=== PATIENT | female | born 1935 | race Caucasian/White ===

== ENCOUNTER 2016-10-24 10:09 | Outpatient (CLI) | payer MEDICARE, OTHER ==
[2016-10-24 11:54] LABS: #Basophils 0.1 thou/uL (0.0-0.2); #Eosinphils 0.1 thou/uL (0.0-0.7); #Lymphocytes 1.3 thou/uL (1.20-3.40); #Monocytes 0.5 thou/uL (0.11-0.59); #Neutrophils 3.6 thou/uL (1.40-6.50); %Basophils 1.1 % (0.0-1.0); %Eosinophils 2.4 % (0.0-10.0); %Monocytes 8.2 % (0.0-10.0); Hematocrit 45.5 % (36.0-47.0); Mean Platelet Volume 5.9 fL (7.4-10.4); Red Blood Cell (RBC) Count 5.01 mill/uL (4.20-5.40); White Blood Cell (WBC) Count 5.5 thou/uL (4.8-10.8)
[2016-10-24 12:04] LABS: ALT (SGPT) 23 U/L (0-55); AST (SGOT) 21 U/L (5-34); Alkaline Phosphatase 50 U/L (40-150); Anion Gap 13 mmol/L (10-20); BUN (Urea Nitrogen) 18 mg/dL (9.8-20.1); Bilirubin, Total 0.6 mg/dL (0.2-1.2); Calc. Creatinine Clearance 0 mL/min (70-130); Calcium 9.2 mg/dL (7.8-10.44); Carbon Dioxide 26 mmol/L (23-31); Chloride 108 mmol/L (98-107); Estimated GFR-MDRD 64; Globulin 2.1 g/dL (2.4-3.5); LDL Cholesterol, Calculated 91 mg/dL; Protein, Total 6.2 g/dL (5.8-8.1)
== END 2016-10-24 10:10 | disposition home or self-care (01) ==
LOC: HPCALD 10:09
PROVIDERS: ATTEND Family Medicine
DX: E78.5 Hyperlipidemia, unspecified (principal); I10 Essential (primary) hypertension
CPT/HCPCS: 36415; 80053; 80061; 85025

== ENCOUNTER 2016-12-26 12:48 | Outpatient (CLI) | payer MEDICARE, OTHER ==
--- NOTE | 2016-12-26 18:28 | ULT ---
BILATERAL RENAL ULTRASOUND 12/26/16 Ultrasonography of the urinary tract was performed. The right kidney measures 9.9 x 5.1 x 4.2 cm. Th e left kidney measures 10.7 x 5.4 x 4.4 cm. No mass or hydronephrosis was seen in either kidney. The cortex seems ample in thickness and is normal in echogenicity bilaterally. There were no unequivoca l bright echoes in either kidney to confidently diagnose renal calculi. There were a few questionabl e areas on the left. The urinary bladder showed no internal defects. The wall was marginally thick a t 4 to 5 mm, but it was not completely distended. IMPRESSION: No definite acute findings. See comments above. POS: HOME
== END 2016-12-26 12:49 | disposition home or self-care (01) ==
LOC: BURULT 12:48
PROVIDERS: ATTEND Urology
DX: N20.0 Calculus of kidney (principal)
CPT/HCPCS: 76770

== ENCOUNTER 2017-04-19 12:01 | Outpatient (CLI) | payer MEDICARE, OTHER ==
[2017-04-19 12:09] LABS: #Basophils 0.1 thou/uL (0.0-0.2); #Eosinphils 0.3 thou/uL (0.0-0.7); #Lymphocytes 1.4 thou/uL (1.20-3.40); #Neutrophils 7.5 thou/uL (1.40-6.50); %Eosinophils 2.5 % (0.0-10.0); %Lymphocytes 14.1 % (21.0-51.0); %Monocytes 9.3 % (0.0-10.0); %Neutrophils 73.1 % (42.0-75.0); Hemoglobin 14.5 g/dL (12.0-16.0); Mean Corpuscular HGB CONC 34.2 g/dL (32.0-36.0); Mean Corpuscular Hemoglobin 30.1 pg (27.0-31.0); Mean Corpuscular Volume 88.1 fl (81.0-99.0); Mean Platelet Volume 6.2 fL (7.4-10.4); Platelet Count 323 thou/uL (130-400); Red Blood Cell (RBC) Count 4.82 mill/uL (4.20-5.40); White Blood Cell (WBC) Count 10.2 thou/uL (4.8-10.8)
[2017-04-19 12:51] LABS: ALT (SGPT) 22 U/L (8-55); AST (SGOT) 17 U/L (5-34); Albumin 3.9 g/dL (3.4-4.8); Alkaline Phosphatase 100 U/L (40-150); Anion Gap 19 mmol/L (10-20); BUN (Urea Nitrogen) 21 mg/dL (9.8-20.1); Bilirubin, Total 0.7 mg/dL (0.2-1.2); Calc. Creatinine Clearance 0 mL/min (70-130); Calcium 9.3 mg/dL (7.8-10.44); Carbon Dioxide 20 mmol/L (23-31); Chloride 105 mmol/L (98-107); Estimated GFR-MDRD 51; Globulin 2.5 g/dL (2.4-3.5); Glucose 93 mg/dL (83-110); Protein, Total 6.4 g/dL (6.0-8.3); Sodium 140 mmol/L (136-145)
== END 2017-04-19 12:02 | disposition home or self-care (01) ==
LOC: HPCALD 12:01
PROVIDERS: ATTEND Family Medicine
DX: R63.4 Abnormal weight loss (principal)
CPT/HCPCS: 36415; 80053; 84443; 85025

== ENCOUNTER 2017-04-22 07:59 | Outpatient (CLI) | payer MEDICARE, OTHER ==
[2017-04-22] MEDS ORDERED: Iopamidol 370 76% 100 ML VIAL ONE (09:00)
--- NOTE | 2017-04-22 21:55 | CT ---
CT OF THE ABDOMEN AND PELVIS WITH CONTRAST: DATE: 04/22/17. FINDINGS: Spiral CT of the abdomen and pelvis was performed for evaluation of weight loss and some left lower quadrant pain. Axial slices were acquired, then coronal reconstructions were done. Review was made of a prior CT dated 08/10/16. The lung bases are clear. The liver, spleen, pancreas, gallbladder, adrenal glands, and abdominal a fernandez appear normal. No space-occupying disease was seen in any organ and the aorta is normal in rachael iber. Bilateral renal calculi are present, but there is no evidence of urinary tract obstruction. The 201 6 study showed far more calculi in the upper pole of the left kidney than is seen today. I do not k now if there have been any procedures in the interim. Nevertheless, I do not find definite ureteral calculi (tiny ones might be missed in this study with contrast), nor is there any hydronephrosis to suggest such. A few subcentimeter cysts are likely in the cortex of each kidney. The bowel is nondistended with no sign of obstruction. There is no free air or free fluid. Diverti culosis is present, particularly in the sigmoid region. There were a few areas around the sigmoid c olon where one might wonder about the very minor stranding. The findings are not strong enough to d efinitely diagnose diverticulitis, though a minimal case is probably not completely excluded. CT of the pelvis showed no pelvic masses, other inflammatory changes, or free fluid. There are some extensive degenerative changes in the patient's lumbar spine which also is quite scoliotic. IMPRESSION: 1. Bilateral nonobstructing renal calculi. Much fewer calculi are seen today than in 2016. 2. Diverticulosis, especially sigmoid. Possibly a little streaking around here, but not enough to confidently diagnose diverticulitis as of yet. POS: HOME
== END 2017-04-22 08:00 | disposition home or self-care (01) ==
LOC: BURCT 07:59
PROVIDERS: ATTEND Family Medicine
DX: R63.4 Abnormal weight loss (principal); N20.0 Calculus of kidney; K57.30 Diverticulosis of large intestine without perforation or abscess without bleeding
CPT/HCPCS: 74177; A4216

== ENCOUNTER 2017-04-30 13:15 | Emergency (ER) | payer MEDICARE, OTHER ==
[2017-04-30 16:19] LABS: Bilirubin Negative (Negative); Blood, Urine Negative (Negative); Clarity Clear (Clear); Glucose, Urine (Dipstick) Negative (Negative); Leukocyte Trace (Negative); Nitrite Negative (Negative); Protein, Urine (Dipstick) Negative (Neg-Trace); Specific Gravity, Urine 1.015 (1.005-1.030); Urobilinogen 0.2 mg/dL (0.2-1.0); pH, Urine 5.5 (5.0-9.0)
[2017-04-30 16:25] LABS: RBC/HPF 0-3 HPF (0-3)
[2017-04-30 16:26] LABS: Bacteria/HPF 1+ HPF (None Seen); Transitional Epithelial 0-3 HPF (0-3)
[2017-04-30 16:34] LABS: #Basophils 0.1 thou/uL (0.0-0.2); #Eosinphils 0.3 thou/uL (0.0-0.7); #Lymphocytes 1.5 thou/uL (1.20-3.40); #Monocytes 0.9 thou/uL (0.11-0.59); #Neutrophils 8.2 thou/uL (1.40-6.50); %Basophils 0.6 % (0.0-1.0); %Eosinophils 2.9 % (0.0-10.0); %Lymphocytes 13.3 % (21.0-51.0); %Monocytes 8.1 % (0.0-10.0); %Neutrophils 75.1 % (42.0-75.0); Hemoglobin 12.5 g/dL (12.0-16.0); Mean Corpuscular HGB CONC 32.8 g/dL (32.0-36.0); Mean Corpuscular Hemoglobin 29.4 pg (27.0-31.0); Mean Corpuscular Volume 89.7 fl (81.0-99.0); Mean Platelet Volume 5.9 fL (7.4-10.4); Platelet Count 315 thou/uL (130-400); RBC Distribution Width 12.9 % (11.5-14.5); Red Blood Cell (RBC) Count 4.25 mill/uL (4.20-5.40); White Blood Cell (WBC) Count 10.9 thou/uL (4.8-10.8)
[2017-04-30 16:45] LABS: ALT (SGPT) 35 U/L (8-55); AST (SGOT) 21 U/L (5-34); Albumin 3.4 g/dL (3.4-4.8); Alkaline Phosphatase 104 U/L (40-150); Anion Gap 12 mmol/L (10-20); BUN (Urea Nitrogen) 18 mg/dL (9.8-20.1); Bilirubin, Total 0.5 mg/dL (0.2-1.2); Calc. Creatinine Clearance 0 mL/min (70-130); Calcium 9.5 mg/dL (7.8-10.44); Carbon Dioxide 24 mmol/L (23-31); Chloride 110 mmol/L (98-107); Estimated GFR-MDRD 68; Glucose 96 mg/dL (83-110); Lipase 69 U/L (8-78); Potassium 4.1 mmol/L (3.5-5.1); Protein, Total 6.4 g/dL (6.0-8.3); Sodium 142 mmol/L (136-145)
--- NOTE | 2017-04-30 18:41 | RAD ---
CHEST TWO VIEWS 04/30/2017 COMPARISON: 05/20/2014 FINDINGS: The heart is normal in size. The lungs are clear. There is no sign of pneumonia or pleural effusio n. There is no vascular congestion or edema. The trachea is midline. IMPRESSION: No acute findings. POS: HOME
== END 2017-04-30 17:28 | disposition home or self-care (01) ==
LOC: BURERS 13:15
DX: K29.70 Gastritis, unspecified, without bleeding (principal); R53.83 Other fatigue; E05.90 Thyrotoxicosis, unspecified without thyrotoxic crisis or storm; E78.5 Hyperlipidemia, unspecified; I10 Essential (primary) hypertension
CPT/HCPCS: 36415; 71020; 80053; 81003; 81015; 82274; 83605; 83690; 85025

== ENCOUNTER 2017-05-03 15:02 | Outpatient (CLI) | payer MEDICARE, OTHER ==
[2017-05-03 15:44] LABS: Bilirubin Negative (Negative); Blood, Urine Negative (Negative); Clarity Clear (Clear); Glucose, Urine (Dipstick) Negative (Negative); Leukocyte Trace (Negative); Nitrite Negative (Negative); Protein, Urine (Dipstick) Trace mg/dL (Neg-Trace); Urobilinogen 0.2 mg/dL (0.2-1.0); pH, Urine 5.5 (5.0-9.0)
[2017-05-03 15:52] LABS: RBC/HPF 0-3 HPF (0-3); Squamous Epithelial 0-3 HPF (0-3); WBC/HPF 0-3 HPF (0-3)
[2017-05-03 15:53] LABS: Bacteria/HPF 2+ HPF (None Seen)
== END 2017-05-03 15:03 | disposition home or self-care (01) ==
LOC: HPCALD 15:02
PROVIDERS: ATTEND Family Medicine
DX: R82.71 Bacteriuria (principal)
CPT/HCPCS: 81001; 87077; 87086; 87186

== ENCOUNTER 2017-05-10 16:36 | Emergency (ER) | payer MEDICARE, OTHER ==
[2017-05-10 17:13] LABS: Hemoglobin 11.8 g/dL (12.0-16.0); Mean Corpuscular HGB CONC 32.2 g/dL (32.0-36.0); Mean Corpuscular Hemoglobin 28.6 pg (27.0-31.0); Mean Corpuscular Volume 88.8 fl (81.0-99.0); Platelet Count 402 thou/uL (130-400); Red Blood Cell (RBC) Count 4.14 mill/uL (4.20-5.40); White Blood Cell (WBC) Count 8.9 thou/uL (4.8-10.8)
[2017-05-10 17:29] LABS: CKMB 0.6 ng/mL (0-6.6); Troponin I Less than 0.010 ng/mL (< 0.028)
[2017-05-10 17:33] LABS: ALT (SGPT) 17 U/L (8-55); AST (SGOT) 14 U/L (5-34); Albumin 3.3 g/dL (3.4-4.8); Alkaline Phosphatase 78 U/L (40-150); Anion Gap 15 mmol/L (10-20); BUN (Urea Nitrogen) 16 mg/dL (9.8-20.1); Bilirubin, Total 0.5 mg/dL (0.2-1.2); Calc. Creatinine Clearance 0 mL/min (70-130); Carbon Dioxide 21 mmol/L (23-31); Chloride 107 mmol/L (98-107); Estimated GFR-MDRD 57; Globulin 3.1 g/dL (2.4-3.5); Glucose 105 mg/dL (83-110); Potassium 4.2 mmol/L (3.5-5.1); Protein, Total 6.4 g/dL (6.0-8.3); Sodium 139 mmol/L (136-145)
[2017-05-10 17:38] LABS: MDiff Complete? YES; Manual Diff?? YES
[2017-05-10 17:39] LABS: Band 11 % (5-11); Eosinophils 2 % (0-10); Lymphocytes 8 % (21-51); Monocytes 10 % (0-10); Neutrophil 68 % (42-75)
[2017-05-10 17:51] LABS: Blood, Urine Negative (Negative); Clarity Cloudy (Clear); Glucose, Urine (Dipstick) Negative (Negative); Leukocyte Negative (Negative); Nitrite Negative (Negative); Protein, Urine (Dipstick) 100 mg/dL (Neg-Trace); Specific Gravity, Urine 1.015 (1.005-1.030); Urobilinogen 0.2 mg/dL (0.2-1.0); pH, Urine 5.5 (5.0-9.0)
[2017-05-10] MEDS ORDERED: Ketorolac Tromethamine 30 MG/ML VIAL ONE (17:51)
[2017-05-10 17:52] LABS: Bilirubin Small (Negative)
--- NOTE | 2017-05-10 19:42 | RAD ---
PORTABLE CHEST 05/10/17 An AP portable film at 1657 is compared with a 05/20/14 study. The heart is normal in size. There are no congestive changes or pleural effusions. The lungs are melissa ar. No lobar infiltrate to suggest pneumonia was seen. IMPRESSION: No acute finding. POS: HOME
--- NOTE | 2017-05-10 19:49 | CT ---
CT OF THE BRAIN WITHOUT CONTRAST 05/10/17 No prior films were available for comparison. The ventricles are normal in size for age and atrophy. There is no ventricular shift. No mass, edema , bleeding, or other acute changes were appreciated. Profound patchy deep white matter lucency is pr esent bilaterally consistent with chronic ischemic changes. A small acute stroke would be easily hid den by these findings, but currently, there were no findings strongly indicative of acute stroke. The sphenoid sinus and visible paranasal sinuses are clear. The mastoid air cells are clear. IMPRESSION: 1. No acute intracranial findings. 2. Findings most consistent with chronic deep white matter ischemic change. POS: HOME
--- NOTE | 2017-05-10 20:08 | CT ---
CT ABDOMEN AND PELVIS WITHOUT CONTRAST 05/10/[address] of the abdomen and pelvis was obtained without oral or IV contrast as requested. Comparison is made with a prior study dated 04/22/17. Some areas of linear streaking are seen consistent with atelectasis. These areas were clear on the p rior study. The liver, spleen, pancreas, adrenal glands, and aorta showed no acute changes within th e limitations of a noncontrast study. The gallbladder seems a little opaque but no focal stones or w all thickening could be detected. Regarding the kidneys, there are a few calcifications associated with each kidney. Some are probabl y vascular, though a few may be actual nonobstructing calculi. There is no sign of urinary tract obs truction at this time. I cannot confirm a ureteral calculus. A small calcification seen in the right lower quadrant on scan 70 is most likely not in the ureter. A mild to moderate amount of fecal material is seen in the colon with several air fluid levels but n o dilation. Some nondilated fluid filled small bowel was prominent in the right lower quadrant. The wall thickness of the lower descending/upper sigmoid colon is slightly increased compared to before. This can signify inflammatory or infectious change. Diverticulosis is present. There were no truly convincing findings of diverticulitis. No free fluid was noted. CT of the pelvis showed no pelvic masses, free fluid, or gross inflammatory changes. IMPRESSION: 1. Increase in fecal material and some air fluid levels in nondistended bowel. This is a nonspe cific finding and can be seen in infectious and inflammatory conditions. 2. Mild thickening of the lower descending and sigmoid colons compared to the prior study. This can be seen in infectious and inflammatory processes. There is also some diverticulosis without con vincing findings of diverticulitis. 3. Several renal calcifications, some of which are vascular, but a few are probably tiny nonobs tructing calculi. 4. Some basilar atelectasis in the lungs, left more than right. POS: HOME
== END 2017-05-10 18:40 | disposition short-term general hospital (02) ==
LOC: BURERS 16:36
DX: K57.92 Diverticulitis of intestine, part unspecified, without perforation or abscess without bleeding (principal); E05.90 Thyrotoxicosis, unspecified without thyrotoxic crisis or storm; E78.5 Hyperlipidemia, unspecified; I10 Essential (primary) hypertension; Z79.899 Other long term (current) drug therapy
CPT/HCPCS: 51701; 70450; 71010; 74176; 80053; 81003; 82553; 83605; 83880; 84484; 85025; 87040; 93005; 96361; 96374; A4353; J1885